=== PATIENT | male | born 1955 | race Caucasian/White ===

== ENCOUNTER 2020-03-11 14:15 | Emergency (ER) | payer BC, SELFPAY ==
[2020-03-11] VITALS (7 sets, daily range): BP systolic 134–184; BP diastolic 68–100; PULSE 94–105; RESP 16–18; TEMP 36.8; O2SAT 95–98
--- NOTE | ~2020-03-11 | CT_ITS ---
EXAMINATION: CT brain wo con DATE: 03/11/2020 15:00 INDICATION: Dizziness. TECHNIQUE: Computed tomography (CT) of the head was performed without intravenous contrast. The mA wa s adjusted according to patient size. Iterative reconstruction technique was employed. The dose-lengt h product was 605.33 mGy-cm. COMPARISON: None FINDINGS: There is no intracranial hemorrhage, acute infarction, or abnormal intracranial mass lesion . The ventricles are normal in size. There is mild mucosal thickening in the paranasal sinuses. The m astoid air cells are normal. The orbits are normal. IMPRESSION: 1. Normal brain. Reviewed, dictated and finalized at location A. IMPRESSION: 1. Normal brain.
--- NOTE | ~2020-03-11 | US_ITS ---
EXAMINATION: US carotid duplex BI DATE: 03/11/2020 15:27 INDICATION: Temporary vision loss on the left. TECHNIQUE: Grayscale, color Doppler, and pulsed Doppler images of the cervical carotid arteries were obtained. The degree of vessel stenosis is placed in one of the following categories: normal, <50%, 5 0-69%, >=70% but less than near-occlusion, near-occlusion, or total occlusion. Note that percent sten osis relative to normal distal artery lumen diameter is indirectly measured from velocity measurement s as described by Don, et al. Radiology 2003; 229:340-346. COMPARISON: None. FINDINGS: RIGHT: The right common carotid artery (CCA) peak systolic velocity (PSV) is 85 cm/s. The right internal car otid artery (ICA) PSV is 68 cm/s. The right ICA end-diastolic velocity (EDV) is 25 cm/s. The right IC A/CCA PSV ratio is 0.8. Grayscale and color Doppler images yield an estimate of <50% diameter reducti on from plaque in the ICA. There is antegrade flow in the right vertebral artery. LEFT: The left CCA PSV is 116 cm/s. The left ICA PSV is 283 cm/s. The left ICA EDV is 95 cm/s. The left ICA /CCA PSV ratio is 2.4. Grayscale and color Doppler images yield an estimate of >=50% diameter reducti on from plaque in the ICA. There is antegrade flow in the left vertebral artery. IMPRESSION: 1. <50% stenosis in the right internal carotid artery. 2. >=70% stenosis in the left internal carotid artery, but less than near occlusion. Reviewed, dictated and finalized at location A. IMPRESSION: 1. <50% stenosis in the right internal carotid artery. 2. >=70% stenosis in the left internal carotid artery, but less than near occlu jc.
--- NOTE | 2020-03-11 14:25 | ECG_ITS ---
Measurements Intervals [place] Rate: 89 P: 84 PA: 152 QRS: 66 QRSD: 77 T: 65 QT: 327 QTc: 400 Interpretive Statements SINUS RHYTHM NORMAL ECG Electronically Signed On 03-11-2020 18:37:52 CDT by Neptali Watkins D.O.
[2020-03-11 15:16] LABS: Basophils Absolute Auto 0.1 K/mm3 (0.0-0.1); Basophils Percent Auto 0.8 % (0.2-1.2); Eosinophils Absolute Auto 0.2 K/mm3 (0-0.3); Eosinophils Percent Auto 1.5 % (0-4.4); Hematocrit 47.4 % (42.0-52.0); Hemoglobin 16.1 g/dL (14.0-18.0); Immature Granulocyte Absolute 0.03 K/mm3 (0.00-0.031); Immature Granulocyte Percent A 0.3 % (0-0.5); Lymphocytes Absolute Auto 2.21 K/mm3 (0.9-3.2); Lymphocytes Percent Auto 21.5 % (18.3-44.2); Mean Corpuscular Hemoglobin 31.8 pg (26-34); Mean Corpuscular Volume 93.7 fl (80-100); Mean Platelet Volume 10.1 fl (7.4-10.4); Monocytes Percent Auto 9.2 % (2.6-8.5); Neutrophils Absolute Auto 6.9 K/mm3 (1.3-6.7); Neutrophils Percent Auto 66.7 % (45.5-73.1); Platelet Count Result 297 k/mm3 (150-375); Red Blood Count 5.06 M/mm3 (4.6-6.20); White Blood Count 10.3 K/mm3 (4.5-10.0)
[2020-03-11 15:26] LABS: Alanine Aminotransferase 28 U/L (4-50); Albumin Level 4.5 g/dL (3.5-5.1); Alkaline Phosphatase 105 U/L (38-126); Aspartate Amino Transferase 28 U/L (17-59); Bilirubin,Total 0.5 mg/dL (0.2-1.3); Blood Urea Nitrogen 18 mg/dL (9-20); Carbon Dioxide 25 mmol/L (22-30); Chloride 100 mmol/L (98-107); Estimated CRCL calculation 81 ml/min; Estimated Glomerular Filt Rate > 60; Glucose 105 mg/dL (75-110); Potassium 4.2 mmol/L (3.4-5.0); Sodium 134 mmol/L (137-145)
--- NOTE | 2020-03-11 15:26 | ED.DIZZY ---
HPI - Dizziness General Chief Complaint: Dizziness <NATO Mario Last Filed: 03/11/20 17:02> Stated Complaint: dizzy x 1 week <NATO Mario Last Filed: 03/11/20 17:02> Time Seen by Provider: 03/11/20 14:21 <NATO Mario Last Filed: 03/11/20 17:02> Source: patient <NATO Mario Last Filed: 03/11/20 17:02> Mode of arrival: ambulatory <NATO Mario Last Filed: 03/11/20 17:02> Limitations: no limitations <NATO Mario Last Filed: 03/11/20 17:02> History of Present Illness HPI Narrative: This is a 64 year old male that presents to the ER for left sided vision loss over the last week. Reports three times over the last week he has lost his vision in the left eye. Reports this lasted for about 5 minutes. Reports total blindness in the eye at that time. Reports this happened again this morning which prompted him to be seen. Reports he is also intermittently feeling lightheaded when standing. Denies fever, headache, vomiting, numbness or weakness. <NATO Mario Last Filed: 03/11/20 17:02> Related Data Home Medications: Home Medications Medication Instructions Recorded Confirmed atorvastatin 20 mg tablet 20 mg PO DAILY 11/16/19 <NATO Mario Last Filed: 03/11/20 17:02> Allergies/Adverse Reactions: Allergies Allergy/AdvReac Type Severity Reaction Status Date / Time No Known Drug Allergies Allergy Unknown Verified 10/19/14 18:51 <NATO Mario Last Filed: 03/11/20 17:02> Review of Systems Review of Systems: Narrative: CONSTITUTIONAL: Denies fever EYES: Reports visual changes GASTROINTESTINAL: Denies vomiting NEUROLOGIC: Denies headache, numbness, or weakness. <NATO Mario Last Filed: 03/11/20 17:02> All systems reviewed & are unremarkable except as noted in HPI and below <Gwendolyn Montana PA-C - Last Filed: 03/11/20 17:02> [facility] Past Medical History Medical History: Medical History (Updated 03/11/20 @ 17:02 by Gwendolyn Montana PA-C) History of COPD History of hyperlipidemia <Gwendolyn Montana PA-C - Last Filed: 03/11/20 17:02> Family History Family History: Family History (Updated 02/23/19 @ 15:23 by DOCTOR UNKNOWN) Mother Acute myocardial infarction Other Family history of throat cancer <Gwendolyn Montana PA-C - Last Filed: 03/11/20 17:02> Social History Social History: Social History Smoking status: Light tobacco smoker Second hand tobacco smoke exposure: Yes Alcohol intake: current Gender identity (if verbalized by the patient): Male <Gwendolyn Montana PA-C - Last Filed: 03/11/20 17:02> Exam Narrative: Exam Narrative: GENERAL: Well-appearing, well-nourished, and in no acute distress. HEAD: Normocephalic, atraumatic. EYES: PERRLA and EOMI. ENT: Nares clear, no rhinorrhea or epistaxis. Mucous membranes moist. Oropharynx without tonsillar hypertrophy exudate or other lesions. Bilateral TMs pearly malone non-bulging NECK: Supple. No adenopathy or masses. No carotid bruits or JVD CHEST: Clear to auscultation. No respiratory distress. No wheezes rales or rhonchi HEART: Regular rate and rhythm. No murmur heard. Normal peripheral pulses. EXTREMITIES: Normal range of motion. No edema. SKIN: Warm, dry, no rash. NEURO: No focal deficits. Alert and oriented x3. CN II-XII grossly intact. Normal finger to nose PSYCH: Normal mood and affect <Gwendolyn Montana PA-C - Last Filed: 03/11/20 17:02> Course ELECTRICAL SUBCONTRACTOR/PA Physician Supervision For this patient encounter, I reviewed the ELECTRICAL SUBCONTRACTOR or PA documentation, treatment plan, and medical decision making; and I had [id number] time with this patient. This patient presented with dizziness and intermittent vision loss to left eye. Patient has been found to have significant carotid stenosis so he will be transferred to [facility] for evaluation of vascular surgeon. <Nae Patterson,
[2020-03-11 15:27] LABS: INR 0.9; Partial Thromboplastin Time 25.2 SECONDS (22.3-36.8); Prothrombin Time 12.2 Seconds (11.1-14.7)
[2020-03-11 15:44] LABS: Erythrocyte Sedimentation Rate 18 mm/hr (0-20)
[2020-03-11] MEDS: SODIUM CHLORIDE 0.9% IV 500 ML 999 ML IV CONT (16:07)
[2020-03-11] MEDS: CLOPIDOGREL BISULFATE 75 MG TABLET PO (16:44)
[2020-03-11] MEDS: ASPIRIN 325 MG TABLET PO (16:45)
--- NOTE | 2020-03-11 18:17 | PC.NURSE ---
[facility] declined transfer [facility] Accepted ETA 20 min Trip # [id number]
== END 2020-03-11 18:15 | disposition short-term general hospital (02) ==
PROVIDERS: Physician Assistant; Emergency Provider General Practice
DX: I65.22 Occlusion and stenosis of left carotid artery (principal); J44.9 Chronic obstructive pulmonary disease, unspecified; E78.5 Hyperlipidemia, unspecified; F17.200 Nicotine dependence, unspecified, uncomplicated
CPT/HCPCS: 36415; 70450; 80053; 85025; 85610; 85652; 85730; 93005; 93880; 99285; A9270; J7040

== ENCOUNTER → 2021-04-02 03:38 | Outpatient (CLI) | payer MEDICARE, OTHER, SELFPAY ==
[2021-04-04 12:51] LABS: SARS-CoV-2 RNA PCR Negative
== END ==
PROVIDERS: PCP Physician Assistant; Visit Provider Surgery
DX: Z01.812 Encounter for preprocedural laboratory examination (principal); Z20.822 Contact with and (suspected) exposure to COVID-19
CPT/HCPCS: C9803; U0003; U0005

== ENCOUNTER 2023-02-06 13:21 | Outpatient (CLI) | payer MEDICARE, OTHER, SELFPAY ==
--- NOTE | 2023-02-06 14:39 | ECG_ITS ---
Measurements Intervals [place] Rate: 80 P: 87 WA: 173 QRS: 67 QRSD: 80 T: 57 QT: 346 QTc: 401 Interpretive Statements SINUS RHYTHM BASELINE ARTIFACT- I, II NORMAL ECG COMPARED TO ECG 03/11/2020 15:31:00 NO SIGNIFICANT CHANGES Electronically Signed On 02-06-2023 14:55:27 CDT by Neptali Watkins D.O.
== END 2023-02-06 13:22 | disposition home or self-care (01) ==
PROVIDERS: PCP Family Medicine; Visit Provider Surgery
DX: Z01.818 Encounter for other preprocedural examination (principal); I10 Essential (primary) hypertension
CPT/HCPCS: 93005

== ENCOUNTER 2023-02-12 00:05 | Day surgery (SDC) | payer MEDICARE, OTHER, SELFPAY ==
[2023-01-31 14:40] VITALS: BMI 21.7
--- NOTE | 2023-01-31 14:51 | PC.NURSE ---
PRE-OP INSTRUCTIONS, PLEASE READ CAREFULLY Report to the Outpatient Waiting Room, entrance under the green pavilion located off [facility], at time _1130_ on date _02/12/23_. Planned Procedure Time: _1:30 PM_. Time changes happen often and if your time is changed the preop area will call you the afternoon before. - You and your visitor will be asked to self-screen and do not enter if you have any COVID symptoms. - Only one visitor is requested with a max of two and NO children visitors are allowed at this time. - The patient visitor may be requested to leave or wait in car when not with patient due to distancing restrictions. - A mask is optional within the hospital at this time. Patients may have clear liquids (water, carbonated beverages, clear teas, apple juice) until 3 hours prior to surgery (1030 AM) with a maximum of 20 ounces. - No food from midnight until time of surgery Take the following medications with a SIP of water the morning of surgery: _INHALERS__ DO NOT STOP ANY OF YOUR OTHER PRESCRIPTION MEDICATIONS PRIOR TO SURGERY ?EXCEPT THE FOLLOWING Medications to discontinue _IBUPROFEN PER DR. PEREZ'S INSTRUCTIONS_ Date to take last dose Please no make-up, nail macanese, hairspray, perfume, deodorant, or body powder the day of surgery. No jewelry (including any body piercings) or valuables the day of surgery, leave them at home. Please take a shower or bath the night before, or the morning of, surgery with an antibacterial soap. Wear comfortable, loose fitting clothing. - Jewelry must be removed prior to entering the operating room. Rings and piercings that are not removed may be cut off. - The hospital will not accept responsibility for valuables. - Please leave all valuables, including medications, at home the day of surgery. If you are going home after surgery, a licensed party bus driver must drive you home. - NO public transportation without another adult if you receive anesthesia. - We recommend that an adult stay with you for 24 hours following discharge. - We also recommend that you do not drive, make important decision, drink alcoholic beverages, or take any drugs that were not prescribed by your health care provider for at least 24 hours after your discharge time. Follow any additional instructions given to you from your surgeon. If you or anyone in your household have experienced Covid symptoms in the past week, please notify your surgeon or the nurse liaison at the phone number below for possible testing. Telephone instructions given to _PATIENT_and asked if any additional questions and then verbalized understanding. Patient advised to call surgeon office or pre surgery nurse liaison [phone] if any additional questions.
[2023-02-12] MEDS: LACTATED RINGERS 1,000 ML 30 ML IV CONT (11:30)
--- NOTE | 2023-02-12 11:48 | WPDHPUPDATE1 ---
History and Physical Update Update Date/Time: 02/12/23 11:48 History and Physical has been reviewed, including an updated exam of the patient. There are NO changes in the patient's condition. Risks, benefits, and alternatives have been discussed and questions answered. Patient agrees to proceed with procedure.
[2023-02-12 12:00] VITALS: BP 152/62; PULSE 80; RESP 16; TEMP 36.2; O2SAT 99
--- NOTE | 2023-02-12 13:17 | WPDANESEPPF ---
Anes - Initial Pre Proc Eval Procedure: Operation Date: 02/12/23 13:30 Proposed Procedures p Excisional Biopsy of Right Chest Wall Lesion - Elisabeth Coates MD Date/Time: 02/12/23 13:17 Surgeon: Elisabeth Coates MD Pre Op Diagnosis: Rt Chest Lesion Patient Data Age: 67 Gender: M Height: 1.65 m Weight: 58.3 kg Last Vital Signs Temp 97.2 F L 02/12/23 12:00 Pulse 80 02/12/23 12:00 Resp 16 02/12/23 12:00 BP 152/62 H 02/12/23 12:00 Pulse Ox 99 02/12/23 12:00 O2 Del Method Room Air 02/12/23 12:00 Allergies Allergy/AdvReac Type Severity Reaction Status Date / Time No Known Drug Allergies Allergy Unknown Unknown Verified 02/12/23 12:35 Home Medications Medication Instructions Recorded Confirmed Type aspirin 81 mg tablet,delayed 81 mg PO DAILY 03/22/21 02/05/23 History release (Adult Aspirin Regimen) tiotropium bromide 18 mcg capsule 1 cap inhalation DAILY #90 04/10/22 02/05/23 Rx with inhalation device (Spiriva inhalations with HandiHaler) budesonide-formoterol HFA 160 2 inh inhalation Q12H #10.2 grams 07/26/22 02/05/23 Rx mcg-4.5 mcg/actuation aerosol inhaler (Symbicort) ezetimibe 10 mg tablet 10 mg PO DAILY #90 tabs 10/20/22 02/05/23 Rx albuterol sulfate 90 mcg/actuation 2 puff inhalation Q4-6H PRN 12/21/22 02/05/23 Rx aerosol inhaler (ProAir HFA) shortness of breath #6.7 grams atorvastatin 80 mg tablet 80 mg PO DAILY #90 tabs 01/27/23 02/05/23 Rx losartan 25 mg tablet 25 mg PO DAILY #30 tabs 01/27/23 02/05/23 Rx ibuprofen 200 mg tablet 400 mg PO Q6H PRN Pain 01/31/23 02/05/23 History clonazepam 0.5 mg tablet 0.5 mg PO BID #60 tabs 02/05/23 02/05/23 Rx fluticasone fur. 200 mcg-umeclid 1 inh inhalation DAILY #60 ea 02/05/23 02/05/23 Rx 62.5 mcg-vilant 25 mcg inhalat.powder (Tresaqib Ellipta) Patient hx anesthesia problems: none Family hx anesthesia problems: none Results Review: All pre-operative results and documents have been reviewed as part of the pre-operative evaluation. [facility] Past Medical History Medical History (Updated 01/29/23 @ 10:35 by Arieal Mota) Anxiety Asthma BMI 22.0-22.9, adult Declined smoking cessation Depression screening Essential hypertension History of COPD History of hyperlipidemia Tobacco dependency Surgical History Surgical History Status post cardiac surgery left carotid endarterectomy 03/2020 Family History Family History Mother Acute myocardial infarction Father Throat cancer Other Family history of throat cancer Social History Social History Smoking packs per day: 0.5 Smoking cigarettes per day: 10.0 Years smoked: 50 Smoking pack-years: 25.00 Smoking status: Current every day smoker Tobacco type: cigarettes Second hand tobacco smoke exposure: Yes Alcohol intake: current Alcohol use details: 2 DRINKS EVERY COUPLE OF MONTHS Substance use: never Substance use type: does not use Lack of Transportation: No Lack of Food: Never True Current Housing: I Have Housing Concerned About Future Housing: No Difficulty Paying Gas/Electric Bills: No Difficulty Paying for Meds: No Currently Unemployed: No Education: High School Diploma/GED Difficulty w/ Childcare or Family Care: No Living arrangements: with family Occupation/Education: retired Gender identity (if verbalized by the patient): Male Spiritual care concerns: No Anes - Eval Final PreProcedure Day of Procedure 02/12/23 13:17 Patient weight: normal Heart: regular rate and rhythm Lungs: clear to auscultation Airway: Mallampati scale class II Neurological: alert and oriented Last oral intake: >/= 8 hours ASA classification: III Emergent: no Anesthetic plan: proceed Anesthesia type and monitoring: general GIVS and standard monit
[2023-02-12] MEDS: BUPIVACAINE/EPINEPHRINE 0.5% 50 ML VIAL 15 ML INFILTRATE (13:28)
[2023-02-12] MEDS: ceFAZolin 2 GM/D5W 50 ML 2 GM/50 ML BAG IVPB (13:28)
[2023-02-12 14:15] VITALS: BP 117/69; PULSE 82; RESP 24; O2SAT 99
--- NOTE | 2023-02-12 14:22 | P.OP_ITS ---
Procedure Note - Detailed Date of Procedure 02/12/23 Pre-op Diagnosis Right chest skin lesion measuring approximately 4.5 x 4.5 cm Post-op Diagnosis Same Procedure Performed excisional biopsy right chest wall skin lesion measuring 4.5 x 4.5 cm Surgeon Elisabeth Coates MD Anesthesia MAC and Local Indications 67-year-old male presenting to the office with a large right chest wall skin lesion measuring approximately 4.5 x 4.5 cm. The patient reports that the lesion has been slowly growing in size and is symptomatic with itching, bleeding. Findings 4.5 x 4.5 cm raised right chest wall skin lesion with no extension into the subcutaneous tissue Description of Procedure The patient was taken to the operating room and placed in the supine position. After adequate induction of MAC anesthesia, the patient was prepped and draped in the normal sterile fashion. A time-out was then done to verify the patient's identity, as well as the procedure being performed. I began by localizing the area in the right chest. I then made an elliptical incision to encompass the entirety of the lesion. This incision was noted to be 11 x 5 cm. Once through the dermis, it was noted that the lesion did not seem to extend into the subcutaneous tissue. Given this, the lesion was fully excised and sent to pathology for further review. I did alyce the specimen with a short stitch superiorly and a long stitch lateral. I then gained hemostasis with the Bovie cautery. I then undermined the dermis circumferentially to allow closure. I then closed the incision with interrupted 2-0 nylon sutures in a mattress fashio n. Sterile dressing was then placed on the wound. The patient tolerated the procedure well and was alert and awake in the operating room postoperatively. He will be transferred to the recovery room in stable condition. Estimated Blood Loss 10 Pathology Yes Complications No immediate complications Condition Stable Disposition PACU [facility] Billing Surgery - Charge Forward: Surgery Billing
[2023-02-12 14:45] VITALS: BP 149/73; PULSE 72; RESP 12
== END 2023-02-12 15:15 | disposition home or self-care (01) ==
PROVIDERS: PCP Family Medicine; Visit Provider Surgery
PROC: (CPT 11606; principal; 2023-02-12 13:30)
DX: C44.519 Basal cell carcinoma of skin of other part of trunk (principal); I10 Essential (primary) hypertension; E78.5 Hyperlipidemia, unspecified; J44.9 Chronic obstructive pulmonary disease, unspecified; F41.9 Anxiety disorder, unspecified; F17.210 Nicotine dependence, cigarettes, uncomplicated; Z79.82 Long term (current) use of aspirin; Z79.51 Long term (current) use of inhaled steroids
CPT/HCPCS: 11606; 88305; J0690; J2704; J3010; J7120

== ENCOUNTER 2024-08-10 10:05 | Outpatient (CLI) | payer MEDICARE, OTHER, SELFPAY | END 2024-08-10 10:06 | disposition home or self-care (01) | LOC: ANHAUDIO 10:06 | PROVIDERS: PCP Family Medicine; Visit Provider Student in an Organized Health Care Education/Training Program | DX: H90.3 Sensorineural hearing loss, bilateral (principal) | CPT/HCPCS: 92557; 92567 ==

== ENCOUNTER 2024-08-13 08:57 | Outpatient (CLI) | payer MEDICARE, OTHER, SELFPAY ==
--- NOTE | ~2024-08-13 | US_ITS ---
EXAMINATION: US aorta [facility] scr[facility] DATE: 08/13/2024 09:54 INDICATION: Abdominal aortic aneurysm screening in a prior smoker TECHNIQUE: Grayscale, color Doppler, and pulsed Doppler images of the aorta and common iliac arteries were obtained. COMPARISON: None. FINDINGS: The proximal aorta measures 2.1 cm AP. The mid aorta measures 1.5 cm AP. The distal aorta measures 1. 6 cm AP tapering to 1.0 cm at the bifurcation. The right common iliac artery measures 0.7 cm. The lef t common iliac artery measures 0.7 cm. IMPRESSION: 1. Normal caliber abdominal aorta. Reviewed, dictated and finalized at location A.
--- NOTE | ~2024-08-13 | CT_ITS ---
CT Scan of the Chest without Contrast: Clinical Indication: Lung cancer screening, nicotine dependence Technique: Contiguous sections were acquired throughout the chest without intravenous contrast. Dose reduction technique was used on this scan by utilizing automated exposure control and iterative recon struction technique. The dose-length product (DLP) was 65.70 mGy-cm. Findings: There is no evidence of any significant mediastinal, hilar or axillary lymphadenopathy. The mediastin al soft tissues appear normal. There is no evidence of pleural or pericardial effusion. There is advanced emphysema, with biapical scarring. 2 mm left upper lobe pulmonary nodule present (a xial image 27). 5 mm right upper lobe pulmonary nodule present (axial image 34). Additional 5 mm righ t upper lobe pulmonary nodule present (axial image 43). 5 mm right lower lobe pulmonary nodule presen t (axial image 68). There is scarring at the lingula. 9 mm right lower lobe pulmonary nodule present (axial image 82). Additional 3 mm right lower lobe pulmonary nodule also present on image 82. Images through the upper abdomen reveal no abnormalities. Impression: Lung RADS 4A: Suspicious. 3 month follow-up CT recommended given presence of 9 mm right lower lobe pu lmonary nodule. PET CT could also be considered. Evidence of emphysema. Reviewed, dictated and finalized at location . Impression: Lung RADS 4A: Suspicious. 3 month follow-up CT recommended given presence of 9 mm right lower lobe pulmonary nodule. PET CT could also be considered. Evidence of emphysema.
[2024-08-13 10:35] LABS: Basophils Percent Auto 0.2 % (0.2-1.2); Hematocrit 37.6 % (42.0-52.0); Hemoglobin 12.7 g/dL (14.0-18.0); Immature Granulocyte Absolute 0.04 K/mm3 (0.00-0.031); Immature Granulocyte Percent A 0.4 % (0-0.5); Lymphocytes Absolute Auto 0.62 K/mm3 (0.9-3.2); Lymphocytes Percent Auto 5.8 % (18.3-44.2); Mean Corpuscular HGB Conc 33.8 g/dl (32-36); Mean Corpuscular Hemoglobin 33.6 pg (26-34); Mean Corpuscular Volume 99.5 fl (80-100); Mean Platelet Volume 9.8 fl (7.4-10.4); Monocytes Absolute Auto 0.3 K/mm3 (0.1-0.6); Monocytes Percent Auto 2.9 % (2.6-8.5); Neutrophils Absolute Auto 9.7 K/mm3 (1.3-6.7); Neutrophils Percent Auto 90.7 % (45.5-73.1); Platelet Count Result 440 k/mm3 (150-375); Red Blood Count 3.78 M/mm3 (4.6-6.20); White Blood Count 10.7 K/mm3 (4.5-10.0)
[2024-08-13 10:42] LABS: Add Urine Microscopic? NO; Appearance Urine Clear (Clear); Bilirubin Urine Negative (Negative); Blood Urine Negative (Negative); Color Urine Yellow (Yellow); Glucose Urine UA Negative (Negative); Ketones Urine Negative (Negative); Leukocyte Esterase Ur Negative LEU/UL (Negative); Nitrate Urine Negative (Negative); Protein Urine Negative (Negative); Specific Grav Ur 1.011 (1.001-1.035); Urobilinogen Urine 0.2 mg/dL (<2.0)
[2024-08-13 10:47] LABS: Alanine Aminotransferase 27 U/L (6-50); Albumin Level 4.5 g/dL (3.5-5.1); Alkaline Phosphatase 80 U/L (38-126); Anion Gap 7 mmol/L (4-12); Aspartate Amino Transferase 40 U/L (17-59); Bilirubin,Total 0.4 mg/dL (0.2-1.3); Blood Urea Nitrogen 14 mg/dL (9-20); Calcium 9.5 mg/dL (8.4-10.2); Carbon Dioxide 31 mmol/L (22-30); Chloride 91 mmol/L (98-107); Cholesterol 128 mg/dL (0-200); Estimated Glomerular Filt Rate > 60; Glucose 108 mg/dL (65-110); HDL Direct 67 mg/dL; Sodium 129 mmol/L (137-145); Triglycerides 68 mg/dL (<150)
[2024-08-13 10:59] LABS: LDL Cholesterol Direct 40 mg/dL
[2024-08-13 11:07] LABS: Free T4 Free Thyroxine 1.59 ng/mL (0.78-2.19)
[2024-08-13 11:17] LABS: Thyroid Stimulating Hormone 0.747 uIU/mL (0.465-4.680)
[2024-08-13 11:52] LABS: Folic Acid 6.6 ng/mL (2.76->20)
== END 2024-08-13 08:58 | disposition home or self-care (01) ==
LOC: ANHIMG 09:06
PROVIDERS: PCP Family Medicine; Visit Provider Student in an Organized Health Care Education/Training Program
DX: Z12.2 Encounter for screening for malignant neoplasm of respiratory organs (principal); J43.9 Emphysema, unspecified; I10 Essential (primary) hypertension; Z98.890 Other specified postprocedural states; R53.83 Other fatigue; R41.3 Other amnesia; R39.9 Unspecified symptoms and signs involving the genitourinary system; E78.5 Hyperlipidemia, unspecified; Z79.899 Other long term (current) drug therapy; Z87.891 Personal history of nicotine dependence; Z12.82 Encounter for screening for malignant neoplasm of nervous system; Z13.6 Encounter for screening for cardiovascular disorders
CPT/HCPCS: 36415; 71271; 76706; 80053; 80061; 81003; 82607; 82746; 84439; 84443; 85025

== ENCOUNTER 2024-08-20 14:38 | Outpatient (CLI) | payer MEDICARE, OTHER, SELFPAY ==
--- NOTE | ~2024-08-20 | MR_ITS ---
EXAMINATION: MR brain IAC wo/w con DATE: 08/20/2024 16:22 INDICATION: Other symptoms and signs involving cognitive function. TECHNIQUE: Magnetic resonance imaging (MRI) of the brain, brainstem, and internal auditory canals was performed without and with 10 mL MultiHance intravenous contrast. COMPARISON: Head CT 03/11/2020 FINDINGS: There are scattered areas of nonspecific increased T2-weighted signal intensity in the cere bral white matter, which is within normal limits for the patient's age. There is no intracranial hemo rrhage, acute infarction, or abnormal intracranial mass lesion. The ventricles are normal in size. Th ere is mild mucosal thickening in the paranasal sinuses. The orbits are normal. The internal auditory canals, inner ears, tympanic cavities, and mastoid air cells are normal. IMPRESSION: 1. Normal aging brain. Reviewed, dictated and finalized at location A. IMPRESSION: 1. Normal aging brain.
[2024-08-20 15:42] LABS: Sodium Urine Random 65 meq/L
[2024-08-20 15:48] LABS: Anion Gap 8 mmol/L (4-12); Blood Urea Nitrogen 11 mg/dL (9-20); Calcium 9.3 mg/dL (8.4-10.2); Carbon Dioxide 31 mmol/L (22-30); Chloride 93 mmol/L (98-107); Estimated Glomerular Filt Rate > 60; Glucose 118 mg/dL (65-110); Potassium 4.1 mmol/L (3.4-5.0); Sodium 132 mmol/L (137-145)
[2024-08-23 13:59] LABS: Osmolality, Urine 253 mOsm/kg (50-1200)
== END 2024-08-20 14:39 | disposition home or self-care (01) ==
PROVIDERS: PCP Family Medicine; Visit Provider Student in an Organized Health Care Education/Training Program
DX: E87.1 Hypo-osmolality and hyponatremia (principal); R41.89 Other symptoms and signs involving cognitive functions and awareness
CPT/HCPCS: 36415; 70553; 80048; 83930; 83935; 84300; A9577

== ENCOUNTER 2024-08-26 11:54 | Outpatient (CLI) | payer MEDICARE, OTHER, SELFPAY ==
--- NOTE | ~2024-08-26 | PE_ITS ---
EXAMINATION: PET skull to mid thigh DATE: 08/26/2024 13:59 INDICATION: Solitary pulmonary nodule TECHNIQUE: Blood glucose level was 94 mg/dL. 10.836 mCi of 18-fluorodeoxyglucose (18-FDG) was adminis tered i.v. Low dose computed tomography (CT) images were acquired from the base of the brain to the p roximal thighs for attenuation correction and anatomic localization. Positron emission tomography (PE T) images were acquired in the same distribution beginning 56 minutes after injection. Images includi ng fused PET/CT images were reconstructed in axial, coronal, and sagittal planes. Automated exposure control technique was employed. The dose-length product was 523.30mGy-cm. COMPARISON: None FINDINGS: Head/neck: There is symmetric increased activity in the oral cavity, palatine tonsils, laryngeal, ocular, mastic ator and cervical paraspinal muscles without CT correlate, likely physiologic. No pathologically enla rged cervical lymphadenopathy or suspicious foci of increased FDG uptake in the visualized head or ne ck. Chest: Moderate emphysema. Again seen are a few scattered small pulmonary nodules without significant increa sed FDG uptake. The largest nodule located in the anterobasilar segment of the right lower lobe measu res 7 mm which appears decreased slightly since the prior study at which time it measured 9 mm and wi th minimal FDG uptake with maximal SUV of 1.9. No other new, enlarging or more FDG avid pulmonary nod ules. Heart size is normal. No pericardial effusion. Thoracic aorta is normal in caliber. No patholog ically enlarged or FDG avid thoracic lymphadenopathy. Mild bilateral gynecomastia. There is mild FDG uptake with maximal SUV of 2.6 associated with a 2.5 x 1.9 cm nonspecific lenticular mass situated be tween the posterolateral left ninth rib and the more superficial serratus anterior muscle. Abdomen/pelvis/proximal thighs: Physiologic renal accumulation and excretion of FDG activity in the kidneys, bladder and along portio ns of ureters. Photopenic defects associated with a couple low-attenuation bilateral renal cysts the larger on the right measuring 2.3 cm. Normal degree and heterogenous pattern of increased uptake thro ughout the liver without radiologic correlate or dominant FDG avid lesion. The gallbladder, pancreas, spleen and bilateral adrenal glands are normal. Mild uptake scattered throughout the bowels without radiologic correlate, also likely physiologic. Normal appendix. Prostatomegaly measuring 4.8 x 4.2 cm . No other abnormal foci of increased FDG uptake or pathologically enlarged lymphadenopathy in the ab domen, pelvis or proximal thighs. Musculoskeletal: Moderate to severe lower cervical and lower lumbar spondylosis with mild intervening thoracic spondyl osis. L5 and lysis with bilateral pars interarticularis defects with a millimeter anterolisthesis on S1. Severe left and mild to moderate right hip osteoarthritis. No suspicious lytic, blastic or FDG av id bone lesions. Mild uptake overlying the left greater trochanter without radiologic correlate consi stent with trochanteric bursitis. IMPRESSION: 1. Previous identified 9 mm right lower lobe nodule appears decreased in size and the current study m easuring 7 mm with minimal FDG activity. While reassuring, the apparent decrease in size could be an artifact of the differences in CT technique with lower resolution on the PET/CT study and the minimal FDG activity does not absolutely exclude malignancy. Would recommend follow-up low-dose noncontrast chest CT in 3-6 months. 2. Mild FDG uptake associated with a 2.5 x 1.9 cm masslike lenticular mass along the at the left serr atus anterior muscle for which differential would include class of fibroma dorsi or other neoplasm ei ther benign or malignant. Would consider ultrasound-guided core needle biopsy for further evaluation. 3. Prostatomegaly.
[2024-08-26 12:29] LABS: Glucose Point of Care 94 mg/dl (65-105)
== END 2024-08-26 11:55 | disposition home or self-care (01) ==
LOC: ANHIMG 11:56
PROVIDERS: PCP Family Medicine; Visit Provider Student in an Organized Health Care Education/Training Program
DX: R91.1 Solitary pulmonary nodule (principal); N40.0 Benign prostatic hyperplasia without lower urinary tract symptoms
CPT/HCPCS: 78815; A9552

== ENCOUNTER 2024-08-30 08:55 | Outpatient (CLI) | payer MEDICARE, OTHER, SELFPAY ==
[2024-08-30 10:05] LABS: Iron 84 ug/dL (49-181)
[2024-08-30 10:14] LABS: Percent Iron Saturation 32 % (20-50)
[2024-09-01 00:39] LABS: Red Blood Cell Folate 443 ng/mL RBC (>280)
[2024-09-01 13:32] LABS: Homocysteine 15.1 umol/L (<11.4)
[2024-09-03 19:53] LABS: Phos tau181(p-tau181) Plasma 1.47 pg/mL (< OR = 1.07)
[2024-09-03 20:04] LABS: Neurofilament Light Chain Plas 8.09 pg/mL (<12.28)
[2024-09-04 04:29] LABS: Methylmalonic Acid 124 nmol/L (69-390)
[2024-09-04 07:38] LABS: Vitamin D 1,25 (OH)2 Total 59 pg/mL (18-72); Vitamin D2 1,25 (OH)2 <8 pg/mL; Vitamin D3 1,25 (OH)2 59 pg/mL
[2024-09-07 10:38] LABS: ApoE Isoforms Plasma E3/E4
== END 2024-08-30 08:56 | disposition home or self-care (01) ==
PROVIDERS: PCP Family Medicine; Referring Provider Psychiatry & Neurology Neurology; Visit Provider Student in an Organized Health Care Education/Training Program
DX: G31.84 Mild cognitive impairment of uncertain or unknown etiology (principal); D64.9 Anemia, unspecified; E55.9 Vitamin D deficiency, unspecified; E87.1 Hypo-osmolality and hyponatremia
CPT/HCPCS: 36415; 82533; 82607; 82652; 82728; 82747; 83090; 83540; 83550; 83921; 96372; J0834